=== PATIENT | female | born 1990 | race Caucasian/White ===

== ENCOUNTER 2016-06-06 14:04 | Emergency (ER) | payer OTHER ==
[~2016-06-06] VITALS: Ht 167.6 cm; Wt 77.1 kg
[2016-06-06 14:06] VITALS: BP 121/71
[2016-06-06] MEDS ORDERED: PRENTAB9 PO (14:41)
[2016-06-06] MEDS ORDERED: ACET50TA PO (14:41)
--- NOTE | 2016-06-06 16:48 | HPE ---
DATE OF ADMISSION: 06/06/2016 HISTORY: A 26-year-old 1, para 0, last period 12/16/2015, estimated date of confinement (EDC) 09/21/2016, at 23 weeks with a history of epigastric discomfort for seven days, was no better no worse and was told to come in to triage. Risk factor is that she has migraines. Laboratories show A negative, HIV negative, rapid plasma reagin (RPR) negative, rubella immune. Varicella nonimmune. Pap normal. Urine negative. Gonorrhea and chlamydia negative. CF negative. She has not had a visit since 04/22/2016. EXAMINATION: On examination, she appears in no distress. heart rate is normal at 23 weeks. Symphysis fundus height nontender. Bowel sounds are positive in all quadrants. Uterus is soft. Abdominal examination, she has some epigastric discomfort, pressure on xiphoid sternum. She has tympany in that she has gas in her stomach. There is no evidence to suggest gallbladder issue or appendiceal issue. This may be just physiologic compression. She does not have any gastroesophageal reflux disease (GERD), and has not had any reflux. Urine is 1.010, pH seven, blood pressure is 122/67, respirations are 18, pulse 105, temperature 98.7. The rest the examination is unremarkable. She is normocephalic, atraumatic. Neck full range of motion. Pupils equal and reactive to light. Distal pulses are symmetric. No evidence of deep venous thrombosis (DVT) pulmonary embolism (PE), or superficial phlebitis. Chest is clear bilaterally to bases. No wheezes or rhonchi. No rash, lesions or pruritus. No arthralgia or myalgia. No complaints of shortness of breath, dyspnea, cough or wheeze. No chest pain. No bleeding. She has no incontinence, urgency or frequency. No nausea, vomiting, diarrhea or constipation. No other appropriate issues. She does suffer from migraines but has not had one in a significant period of time. ASSESSMENT AND PLAN: In summary we have a 23-weeker with epigastric discomfort, not in active labor, has an appointment on discharged with instructions.
== END 2016-06-06 14:45 | disposition admitted as inpatient to this hospital (09) ==
LOC: M LDO 14:26
DX: R10.10 Upper abdominal pain, unspecified (principal)

== ENCOUNTER 2016-06-06 14:24 | Outpatient (CLI) | payer OTHER, SELFPAY ==
[2016-06-06] MEDS ORDERED: ACET50TA PO (14:41)
[2016-06-06] MEDS ORDERED: PRENTAB9 PO (14:41)
== END 2016-06-06 16:05 | disposition home or self-care (01) ==
LOC: M LDO 14:24
PROVIDERS: ATTEND Obstetrics & Gynecology
DX: O26.892 Other specified pregnancy related conditions, second trimester (principal); R10.13 Epigastric pain; Z3A.23 23 weeks gestation of pregnancy

== ENCOUNTER 2016-09-04 01:32 | Outpatient (CLI) | payer OTHER ==
[~2016-09-04] VITALS: Ht 167.6 cm; Wt 85.0 kg
[~2016-09-04 01:32] MED LIST: ACET50TA PO; PRENTAB9 PO
[2016-09-04 01:46] VITALS: BP 131/73
[2016-09-04 03:39] LABS: CALCIUM OXALATE CRYSTALS LARGE
[2016-09-04] MEDS ORDERED: AMPICILLIN SOD/SULBACTAM SOD 3 GM in D5W MINI-BAG PLUS 100 ML IV ONE (04:30)
--- NOTE | 2016-09-04 11:35 | HPE ---
DATE OF ADMISSION: 09/04/2016 This lady is a 26-year-old, 1, para 0, last menstrual period (LMP) 12/16/2015, expected date of confinement (EDC) 09/29/2016 at 36 and 3 weeks of gestation with history urinary tract infection and right flank pain. Risk factors is she is Rh negative, has migraines and had an elevated 1-hour glucose. Her labs show A negative, HIV negative, hepatitis negative, RPR negative. Varicella nonimmune. Pap normal. Urine negative. Gonorrhea and chlamydia negative. 1-hour glucose was 148. 3-hour glucose 96/116/122/87. On examination, she appears distressed with right flank pain and difficulty in voiding. Symphysis fundus height is 36. Category one strip. No contractions. Four quadrant bowel sounds are noted. Urine was significant for 1.027 specific gravity, pH 5, 1+ ketones, 3+ glucose, leukocyte esterase and +1 bacteria, very turbid looking. A clean-catch urine was sent plus culture for sensitivity. The patient was started on Unisom and was given oral antibiotics to take home. The rest the examination is unremarkable. She is normocephalic, atraumatic. Neck with full range of motion. Pupils equal and reactive to light. Distal pulses are symmetric. No evidence of deep vein thrombosis (DVT), pulmonary embolus (PE) or superficial phlebitis. No wheezes or rhonchi. No costovertebral angle (CVA) tenderness. Appropriate symphysis fundus height. Four quadrant bowel sounds. No rashes, lesions or pruritus. No arthralgia or myalgia. No complaints of cough, wheezes, shortness of breath or dyspnea on exertion. No chest pain. No bleeding. Neurologic complete. No incontinence. There is some urgency, frequency and burning on voiding. No nausea, vomiting, diarrhea or constipation. Diabetic issues have been resolved with a 3-hour GTT. She does not smoke, drink or abuse drugs. 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 We gave her precautions regarding increased fluid intake, monitoring her temperature, taking her antibiotics on a regular basis after discharge from here, and follow up with a repeat urine culture in 10 days post last pill taken for her urinary tract infection. The patient expressed understanding of the principles of the plan of management.
== END 2016-09-04 06:05 | disposition home or self-care (01) ==
LOC: M LDO 01:32
PROVIDERS: ATTEND Obstetrics & Gynecology
DX: O26.893 Other specified pregnancy related conditions, third trimester (principal); Z3A.36 36 weeks gestation of pregnancy; R10.9 Unspecified abdominal pain; Z87.440 Personal history of urinary (tract) infections; G43.909 Migraine, unspecified, not intractable, without status migrainosus; R73.09 Other abnormal glucose; R35.0 Frequency of micturition; R39.15 Urgency of urination; R30.0 Dysuria; Z88.8 Allergy status to other drugs, medicaments and biological substances; O99.353 Diseases of the nervous system complicating pregnancy, third trimester

== ENCOUNTER 2016-09-29 13:44 | Inpatient (IN) | payer OTHER ==
[2016-09-29] VITALS (10 sets, daily range): BP systolic 108–132; BP diastolic 57–80
[~2016-09-29] VITALS: Ht 167.6 cm; Wt 90.0 kg
[2016-09-29] MEDS ORDERED: ZANTTAB PO (14:02)
[2016-09-29] MEDS ORDERED: LR 1,000 ML IV SCH (14:49)
[2016-09-29] MEDS ORDERED: LACTATED RINGER'S 1000 ML IV STA (14:49)
--- NOTE | 2016-09-29 15:14 | HPEPDOC ---
Obstetrical History & Physical General Date of Admission Sep 29, 2016 at 13:44 History of Present Illness 26 yo G1 presents to L&D from clinic for IOL @ 40+0 by 10+3 wk US on 01MAR2016 d /t oligohydramnios(noted in clinic today). Denies CTX, LOF, DFM and VB. GBS negative Chief Complaint: Induction of labor (d/t oligohydramnios) Information Provided By: Patient Age: 26 : 1 Term: 0 Pre-term: 0 Abortions: 0 Livin Care Care: Good Care Number of Visits: 11 Dating Final EDC: Sep 29, 2016 Final EDC for Daily Update: Sep 29, 2016 Final EDC by: 1st trimester (US) LMP: Dec 16, 2015 1st Trimester Date: Mar 01, 2016 Weeks + Days: 10.3 Estimated Date of Confinement: Sep 27, 2016 EGA at Admission: 40.0 Antepartum Course Diagnos(e)s 1. Rh negative- Rhogam given @ 28 wks 2. migraines- resolved after discharge from [facility] 3. 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 Pap (ASCUS- repeat PP) Past Medical History Medical History Migraines Surgical History: [place] teeth (2014) Family History Significant Family History: No pertinent family hx Social History Marital Status: Family situation: Spouse/partner home Psychosocial History: No pertinent psych hx * Smoker: non-smoker Alcohol: Denies Drugs: denies Abuse Violence Screening Have you been hit/kicked/slapp: No Have you been sexually assault: No Imunizations Tdap status: current ([id number]) Influenza Status: current ([id number]) Allergies Coded Allergies: Cefaclor (Verified Allergy, Severe, 06/06/16) FACIAL SWELLING Medications Miscellaneous Medications Ranitidine Hcl (Zantac 150 Maximum Streng) 150 Mg Tab, 1 TAB PO Physical Examination Physical Examination GENERAL: A&O x 3 BREAST: . ABDOMEN: Gravid and non-tender to touch. FETUS: VTX by US done in clinic today by Dr. Ramos HEART RATE: RRR, no m/r/g LUNGS: CTA EXTREMITIES: No edema. No clonus. DTRs- +2 [id number] grams SVE- reported from clinic 1 cm Laboratory Data 24H LABS Laboratory Tests 2 09/29/16 14:12: Serology Scanned Report Hepatitis B Testing CBC/BMP 8.5/10.6/31.2/252 Urine Culture: No Growth Pertinent Laboratoy Data Blood Type: A- RBC Antibody Screen: Negative HIV: Positive Hepatitis B: Negative Hepatitis C: Unknown Rapid Plasma Reagin: Nonreactive Rubella: Immune Varicella: Immune Chlamydia/Gonorrhea: Negative Group B Streptococcus: Negative Glucose Tolerance Test: 148 (Elevated 1 hour GTT; 3 hour 96/166/122/87) Anatomy Ultrasound Ultrasound Date: May 11, 2016 Placenta Location: Anterior Normal Anatomy: Yes Placenta Previa: No Steroid Therapy Steroid Therapy: No Vaginal Examination Dilation: 1cm Assessment Heart Rate (FHR): 130 Variability: Moderate Accelerations: Positive Decelerations: None Tocometer Contractions: Yes Frequency: irregular, every 1-5 min. Duration: less than 90 seconds Strength: palpated as mild, resting tone palp/soft Multi-drug resistant Organism: No history of MDRO Assessment/Plan Assessment 26 yo G1 @ 40+0 here for IOL d/t oligohydramnios. 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 Diet: regular GBS negative Labs and IV per protocol Counseled on Pitocin IOL and cook balloon LR 1000 ml bolus, then 125 ml/hr once active or prior to epidural Anticipate C-S as appropriate. LORENA POWERS CNM Sep 29, 2016 15:14
--- NOTE | 2016-09-29 15:32 | IPNPDOC ---
Text Note Date of Service The patient was seen on 09/29/16. NOTE [id number] @ 1530 Cook balloon placed with 60/60 ml of NS /-2, soft/mid/vtx Pt tolerated procedure well LORENA POWERS CNM Sep 29, 2016 15:32
[2016-09-29 15:34] LABS: MEAN CORPUSCULAR HEMOGLOBIN 25.7 pg (27.0-33.0); MEAN CORPUSCULAR HGB CONC 33.6 g/dl (32.0-36.5); MEAN CORPUSCULAR VOLUME 76.3 fl (80.0-96.0)
[2016-09-29] MEDS ORDERED: OXYTOCIN DRIP 30 UNITS in APPROPRIATE DILUENT 1 EA IV SCH (21:30)
[2016-09-30] VITALS (37 sets, daily range): BP systolic 95–141; BP diastolic 52–78
[2016-09-30] MEDS ORDERED: FENTANYL 2MCG/ML ROPIVACAINE 0.2% IN 0.9% NACL 200ML IVBAG As Ordered ONE (03:19)
[2016-09-30] MEDS ORDERED: EPIDURAL COMMENT XX SCH (04:15)
[2016-09-30] MEDS ORDERED: EPIDURAL/PCA KEYS XX PRN (04:15)
[2016-09-30] MEDS ORDERED: NALOXONE INJ 0.4 MG/1 ML VIAL (J2310) IV PRN ×3 (04:15→04:52)
[2016-09-30] MEDS ORDERED: ONDANSETRON 4MG/2ML VIAL (J2405) IV PRN ×3 (04:15→10:45)
[2016-09-30] MEDS ORDERED: FENTANYL/ROPIVACAINE/NACL BAG 200 ML EPIDURAL SCH (04:15)
[2016-09-30] MEDS ORDERED: REFRIGERATOR IV KEYS XX PRN (04:15)
[2016-09-30] MEDS ORDERED: diphenhydrAMINE INJ 50MG/ML VIAL (J1200) IV PRN (04:15)
[2016-09-30] MEDS ORDERED: ePHEDrine SULFATE 25 MG/5 ML(5MG/ML) SYRINGE IV PRN (04:15)
[2016-09-30] MEDS ORDERED: LACTATED RINGER'S 1000 ML IV PRN (04:15)
[2016-09-30] MEDS ORDERED: METOCLOPRAMIDE INJ 10MG/2ML VIAL (J2765) IV PRN ×2 (04:52→10:45)
[2016-09-30] MEDS ORDERED: NALBUPHINE HCL 10 MG/ML AMP (J2300) IV PRN (04:52)
[2016-09-30] MEDS ORDERED: ceFAZolin 2 GM/D5W 50 ML IV BAG (J0690) As Ordered ONE (08:31)
[2016-09-30] MEDS ORDERED: BICITRA 30ML SOLN UDC As Ordered ONE (08:31)
[2016-09-30 08:59] LABS: MEAN CORPUSCULAR HEMOGLOBIN 26.2 pg (27.0-33.0); MEAN CORPUSCULAR HGB CONC 34.4 g/dl (32.0-36.5); MEAN CORPUSCULAR VOLUME 76.3 fl (80.0-96.0); RED CELL DISTRIBUTION WIDTH 13.9 % (11.5-14.5); WHITE BLOOD COUNT 11.9 K/mm3 (4.0-10.0)
[2016-09-30] MEDS ORDERED: BUPIVACAINE HCL 0.5% 10 ML VIAL SC ONE (09:00)
[2016-09-30] MEDS: PRENATAL VITAMINS CHEWABLE TABLET PO SCH (09:00)
[2016-09-30] MEDS ORDERED: ACETAMINOPHEN 650 MG SUPP PR ONE (09:00)
[2016-09-30] MEDS ORDERED: BICITRA 30ML SOLN UDC PO ONE (09:00)
[2016-09-30] MEDS ORDERED: AZITHROMYCIN INJ 500 MG, VIAL MATE ADAPTER 1 EACH in D5W 250 ML IV ONE (09:00)
[2016-09-30] MEDS ORDERED: ONDANSETRON 4MG/2ML VIAL (J2405) As Ordered ONE (09:23)
[2016-09-30] MEDS ORDERED: KETOROLAC 60 MG/2 ML VIAL (J1885) As Ordered ONE (09:23)
[2016-09-30] MEDS ORDERED: OXYTOCIN INJ 10 UNITS/ML VIAL (J2590) As Ordered ONE (09:23)
[2016-09-30] MEDS ORDERED: MORPHINE PRES-FREE INJ 10 MG/10 ML VIAL (J2274) As Ordered ONE (09:46)
[2016-09-30] MEDS ORDERED: fentaNYL 100 MCG/2 ML INJECTION (J3010) As Ordered ONE (09:54)
[2016-09-30 10:27] LABS: CORD GAS ABE A -3.5; CORD GAS ABE V -3.4; CORD GAS HCO3 A 24.8 MEQ/L; CORD GAS O2 SAT A 41.1 %; CORD GAS O2 SAT V 43.4 %; CORD GAS PCO2 A 56.8 mmHg; CORD GAS PCO2 V 51.6 mmHg; CORD GAS PH A 7.258 UNITS; CORD GAS PH V 7.286 UNITS; CORD GAS PO2 A 21.5 mmHg; CORD GAS PO2 V 22.3 mmHg; CORD GAS SBC A 20.2 MEQ/L; CORD GAS SBC V 20.3 MEQ/L; CORD GAS TCO2 A 26.5 MEQ/L; CORD GAS TCO2 V 25.6 MEQ/L
[2016-09-30] MEDS ORDERED: MOM 30ML SUSPENSION UDC PO PRN (10:30)
[2016-09-30] MEDS ORDERED: DOCUSATE SODIUM 100 MG CAP PO PRN (10:30)
[2016-09-30] MEDS ORDERED: ANUSOL HC CREAM 30GM TOP PRN (10:30)
[2016-09-30] MEDS ORDERED: METHYLERGONOVINE MALEATE 0.2 MG TAB PO PRN (10:30)
[2016-09-30] MEDS ORDERED: MEASLES,MUMPS,RUBELLA VACCINE INJ (MMR-II) (90707) SC SCH (10:30)
[2016-09-30] MEDS ORDERED: PERCOCET 5MG/325MG TAB PO PRN ×3 (10:30→10:45)
[2016-09-30] MEDS ORDERED: RHOGAM 300 MCG (1500 IU) INJ (J2790) IM SCH (10:30)
[2016-09-30] MEDS ORDERED: MEPERIDINE INJ 25 MG/ML VIAL (J2175) IV PRN (10:45)
[2016-09-30] MEDS ORDERED: LR 1,000 ML IV SCH (10:45)
[2016-09-30] MEDS ORDERED: fentaNYL 100 MCG/2 ML INJECTION (J3010) IV PRN (10:45)
--- NOTE | 2016-09-30 13:39 | IPN ---
DATE: 09/30/2016 8:15 a.m. This lady was admitted for induction of labor because of oligohydramnios at 40 and 1 weeks' of gestation. She had a Carey bulb catheter placed, which fell out 2 hours later. She was evaluated and found to have changed her cervix to about 2 cm, 50-60% effaced. We started with Pitocin and she had an intermittent category one and category two strips. Artificial rupture of membranes was done at 6 cm after epidural was in place, was meconium stained liquor, not particulate but thin. The vertex was at 6-7 cm and with Pitocin at 4 milliunits she had some late deceleration, category 2 decelerations. We turned up oxygenation and resuscitative measures with changing position and bolusing and the Pitocin was restarted again and again we had a similar pattern of intermittent late decelerations, not a persistent pattern so we turned off the Pitocin, reinstituted resuscitative measures and baby returned to normal baseline. However, she was only still 6-7 cm, remote from delivery. In view of the fact that she is remote from delivery, she has meconium stained liquid, oligohydramnios and inability for baby to tolerate contractions, we discussed primary section with the patient, her , her mother and her father. Expressed understanding of the risks and benefits, including hemorrhage, infection, perforation, , reoperation, remote possibility of blood transfusion, remote possibility of hysterectomy, remote possibility baby could be in intensive care unit (NICU) or laceration of the baby. The patient expressed understanding, signed and witnessed the consent form. Anesthesia has been called to reassess the epidural. Dr. Richards, machine design checker, has been informed about the meconium. We are awaiting to initiate the procedure. We answered all questions, spent 20 minutes discussing [id number].
[2016-09-30] MEDS: IBUPROFEN 800 MG TAB PO SCH (17:40)
[2016-09-30] MEDS: LR 1,000 ML IV SCH (17:40)
[2016-10-01] MEDS: LR 1,000 ML IV SCH (01:15)
[2016-10-01] MEDS: IBUPROFEN 800 MG TAB PO SCH ×3 (01:42→16:37)
[2016-10-01 02:38] VITALS: BP 129/79
[2016-10-01 06:29] VITALS: BP 119/72
[2016-10-01 07:37] LABS: MEAN CORPUSCULAR HEMOGLOBIN 25.4 pg (27.0-33.0); MEAN CORPUSCULAR HGB CONC 33.1 g/dl (32.0-36.5); MEAN CORPUSCULAR VOLUME 76.7 fl (80.0-96.0); WHITE BLOOD COUNT 11.8 K/mm3 (4.0-10.0)
[2016-10-01] MEDS: PRENATAL VITAMINS CHEWABLE TABLET PO SCH (08:54)
[2016-10-01 09:56] VITALS: BP 127/76
[2016-10-01 14:00] VITALS: BP 116/65
[2016-10-01 18:28] VITALS: BP 127/77
[2016-10-01 22:06] VITALS: BP 119/73
[2016-10-02] MEDS: IBUPROFEN 800 MG TAB PO SCH ×2 (01:17→08:42)
[2016-10-02 05:37] VITALS: BP 109/61
[2016-10-02] MEDS ORDERED: PRENTAB9 PO (08:09)
[2016-10-02] MEDS ORDERED: COLA100C5 PO (08:09)
[2016-10-02] MEDS ORDERED: MOTR200T44 PO (08:09)
[2016-10-02] MEDS ORDERED: MILKSUS PO (08:09)
[2016-10-02] MEDS ORDERED: ANUS2.5C2 TOP (08:09)
[2016-10-02] MEDS ORDERED: PERC5TAB12 PO (08:09)
[2016-10-02] MEDS: PRENATAL VITAMINS CHEWABLE TABLET PO SCH (08:42)
--- NOTE | 2016-10-02 12:36 | IPN ---
DATE: 10/01/2016 Postoperative day #1. This lady is a 1, now para 1, who had a primary section for non-reassuring heart remote from delivery, meconium stained liquid and macrosomic . She delivered a live female in weighing 10 pounds 8 ounces, 4766 grams, of nine and nine at 1 and 5 minutes respectfully. Arterial pH 7.25, base excess -3.5, venous pH 7.28, base excess -3.4. Her admitting hemoglobin was 10.0, hematocrit 29.8 and platelets were 181. day #1, hemoglobin 8.7 hematocrit, 26.2 and platelets are 237. Vital signs today, her blood pressure is 116/65, respirations 18, pulse 104, and temperature 97.4. We discussed phlebitis, cystitis, mastitis, endometritis and cellulitis; diet, excise, pain management; perineal, breast and wound care. The rest of the examination is unremarkable. She is normocephalic, atraumatic. Neck full range of motions. Pupils equal and reactive to light. Distal pulses symmetric. No evidence of deep vein thrombosis (DVT), pulmonary embolus (PE) or superficial phlebitis. No edema. Reflexes are normal. Chest is clear bilaterally to bases. No wheezes or rhonchi. No costovertebral angle (CVA) tenderness. Uterus is two below. Lochia is moderate. Incision is clean and dry and four quadrant bowel sounds are noted. She has no rashes, lesions or pruritus. No arthralgia or myalgia. No complaints of cough, wheezes, shortness of breath or dyspnea on exertion. No chest pain. Not bleeding. Neurologic complete. Carey catheter is out. No incontinency, urgency or frequency. No nausea, vomiting, diarrhea or constipation. No diabetic issues. She does not smoke, drink or abuse drugs. She is . There is no domestic violence. In summary, we have a late term gestation delivered by section because of oligohydramnios, non-reassuring heart and remote from delivery, doing well. Planning on discharge tomorrow. Breast-feeding. Is requesting oral contraceptives for control.
--- NOTE | 2016-10-03 08:08 | RO ---
DATE OF PROCEDURE: 09/30/2016 PREOPERATIVE DIAGNOSIS: Nonreassuring heart strip remote from delivery. Meconium stained liquid. Oligohydramnios. POSTOPERATIVE DIAGNOSIS: Nonreassuring heart strip remote from delivery. Meconium stained liquid. Oligohydramnios. Macrosomia. OPERATION PROPOSED: Primary section. OPERATION PERFORMED: Primary section. SURGEON: Dr. Neel Leigh SUPERVISOR FERTILIZER PROCESSING: Dr. Hu Thomas ANESTHESIA: Epidural plus local anesthetic for intraperitoneal procedures. ESTIMATED BLOOD LOSS: 250 mL. PROCEDURE: Under adequate anesthesia, prepped and draped in the supine position, Carey catheter in the bladder draining clear urine, acetaminophen suppository 1300 mg per rectum, antibiotics appropriately on board, and Carey catheter bladder draining clear urine. A time-out performed. A Pfannenstiel incision was made two fingerbreadths above the symphysis pubis passing through abdominal layers securing hemostasis. Opening peritoneal cavity, the lower segment was noted. The bladder reflected well down anteriorly. Low transverse incision was made into the uterus. Meconium was noted to come. We delivered a live female infant weighing 4756 grams, 10 pounds 8 ounces. of nine and nine at 1 and 5 minutes respectively. Arterial pH 7.25, base excess -3.5, venous pH 7.28, base excess -3.4. Placenta was manually removed, three-vessel and the cord, membranes and tissues intact. Swept out the uterus. Uterus contracted well down under Pitocin. The lower segment was oversewn in the usual fashion in two layers and reperitonealization was performed. With instrument and pad count correct and ovaries and tubes appeared to be normal, the abdomen was then closed with running stitch for the peritoneum, same for the fascia, interrupted for subcutaneous and Dexon to the skin. Marcaine 0.25% 10 mL. [place] and Telfa were applied. The patient was sent to recovery in good condition.
--- NOTE | 2016-10-03 22:02 | DSES ---
DATE OF ADMISSION: 09/29/2016 DATE OF DISCHARGE: 10/02/2016 This a 26-year-old 1 now para 1, had a primary section for oligohydramnios non-reassuring heart remote from delivery, live female 10 pounds 8 ounces 4756 grams, score of 9 and 9 and 1 and 5 minutes respectively. Arterial pH 7.25, base excess -3.5, venous pH 7.28, base excess -3.41. On her second postoperative day, we discussed phlebitis, cystitis, mastitis, endometritis and cellulitis, diet, exercise, pain management, perineal and breast and wound care. Her admitting hemoglobin was 10.0, hematocrit 29.8 and platelets 181. Discharge hemoglobin 8.7, hematocrit 26.2 and platelets are 237. DISCHARGE VITAL SIGNS: Her blood pressure is 109/61, respirations are 18, pulse of 81 and temperature 97.3. We discussed phlebitis, cystitis, mastitis, metritis and cellulitis, diet, excise pain management, perineal breast and wound care. She is planning using oral contraceptive method of control. The rest of the examination shows she is normocephalic, atraumatic. Neck full range of motion. Pupils equal and reactive to light. Distal pulses symmetric. No evidence of deep vein thrombosis (DVT) prophylaxis, pulmonary emboli (PE) or superficial phlebitis. Reflexes are normal. No edema. Lungs are clear bilaterally at bases. No wheezes or rhonchi. No costovertebral angle (CVA) tenderness. Abdomen is soft. Bowel sounds are present. Uterus two below. Incision is clean and dry. She has no rashes, lesions or pruritus. No arthralgia, myalgia. No complaints of cough, wheezes, shortness of breath or dyspnea on exertion. No chest pain. No bleeding. Neuro complete. No incontinence, urgency or frequency. No nausea, vomiting, diarrhea or constipation. No diabetic issues. Past medical, surgical, family history unremarkable. She does not smoke, drink, abuse drugs. . There is no domestic violence. In summary, we have a term gestation, had a primary section for non-reassuring heart macrosomia and oligohydramnios discharged with a live female 10 pounds 8 ounces. Medications are going to be dispensed at discharge and she is looking for oral contraceptives.
== END 2016-10-02 13:04 | disposition home or self-care (01) | DRG 765 ==
LOC: M LDI 13:44 → M OBS 09-30 12:00
PROVIDERS: ADMIT Midwife; ATTEND Midwife
PROC: 3E033VJ Introduction of Other Hormone into Peripheral Vein, Percutaneous Approach (ICD-10-PCS; 2016-09-29)
PROC: 10907ZC Drainage of Amniotic Fluid, Therapeutic from Products of Conception, Via Natural or Artificial Opening (ICD-10-PCS; 2016-09-29)
PROC: 10D00Z1 Extraction of Products of Conception, Low, Open Approach (ICD-10-PCS; principal; 2016-09-30)
DX: O76 Abnormality in fetal heart rate and rhythm complicating labor and delivery (principal); O41.03X0 Oligohydramnios, third trimester, not applicable or unspecified; Z37.0 Single live birth; Z3A.40 40 weeks gestation of pregnancy; O77.0 Labor and delivery complicated by meconium in amniotic fluid; O48.0 Post-term pregnancy

== ENCOUNTER 2016-10-29 15:51 | Emergency (ER) | payer OTHER ==
[~2016-10-29] VITALS: Ht 167.6 cm; Wt 77.3 kg
[~2016-10-29 15:51] MED LIST changes: +ANUS2.5C2 TOP; +COLA100C5 PO; +MILKSUS PO; +MOTR200T44 PO; +PERC5TAB12 PO; +ZANTTAB PO
[2016-10-29] MEDS ORDERED: NYST50SS SS (17:25)
[2016-10-29 17:38] VITALS: BP 131/91
== END 2016-10-29 17:39 | disposition home or self-care (01) ==
LOC: M ED 15:51
DX: B37.0 Candidal stomatitis (principal)

== ENCOUNTER 2016-10-31 20:05 | Emergency (ER) | payer OTHER ==
[~2016-10-31] VITALS: Ht 167.6 cm; Wt 77.3 kg
[~2016-10-31 20:05] MED LIST changes: +NYST50SS SS
[2016-10-31 21:13] VITALS: BP 149/91
[2016-10-31] MEDS ORDERED: LIDOCAINE VISCOUS 2% SOLN 15ML UDC SS ONE (21:15)
== END 2016-10-31 21:14 | disposition home or self-care (01) ==
LOC: M ED 20:05
DX: K12.0 Recurrent oral aphthae (principal); Z88.1 Allergy status to other antibiotic agents